=== PATIENT | male | born 1965 | race Caucasian/White ===

== ENCOUNTER 2022-01-13 16:08 | Emergency (ER) | payer MEDICAID ==
[~2022-01-13] VITALS: Ht 172.7 cm; Wt 70.3 kg
[~2022-01-13 16:08] MED LIST: ESOM20CA PO; METH10OR11 PO
[2022-01-13] MEDS ORDERED: LOPE2CAP PO (17:08)
[2022-01-13] MEDS ORDERED: CIPR-262 PO (17:08)
--- NOTE | 2022-01-13 17:13 | NUR ---
Patient discharged to home in stable condition. Written and verbal after care instructions given. Patient verbalizes understanding of instructions. Stressed follow up or return to ER for worsening s/s.
== END 2022-01-13 17:17 | disposition home or self-care (01) ==
LOC: ER 16:08
DX: R19.7 Diarrhea, unspecified (principal); K21.9 Gastro-esophageal reflux disease without esophagitis; E11.9 Type 2 diabetes mellitus without complications; D84.9 Immunodeficiency, unspecified
CPT/HCPCS: A4663

== ENCOUNTER 2023-10-21 15:04 | Emergency (ER) | payer MEDICAID ==
[~2023-10-21] VITALS: Ht 152.4 cm; Wt 71.7 kg
[~2023-10-21 15:04] MED LIST changes: +CIPR-262 PO; +LOPE2CAP PO
[2023-10-21] MEDS ORDERED: PRAV20TA4 PO (16:03)
[2023-10-21] MEDS ORDERED: INSU100V10 SQ (16:03)
[2023-10-21] MEDS: IV NORMAL SALINE 1000 ML BAG IV ONE (16:31)
[2023-10-21 16:38] LABS: BASOPHILS # (AUTO) 0.3 K/UL (0.0-0.2); BASOPHILS % (AUTO) 3.1 % (0.0-2.0); EOSINOPHILS # (AUTO) 0.1 K/uL (0.0-0.7); EOSINOPHILS % (AUTO) 0.6 % (0.0-7.0); HEMOGLOBIN 14.8 g/dL (12.5-16.3); LYMPHOCYTES # (AUTO) 1.5 K/uL (0.8-4.8); LYMPHOCYTES % (AUTO) 15.8 % (20.5-51.5); MEAN CORPUSCULAR HEMOGLOBIN 27.6 uug (23.8-33.4); MEAN CORPUSCULAR HGB CONC 33 g/dL (32.5-36.3); MEAN CORPUSCULAR VOLUME 83.8 fL (73.0-96.2); MONOCYTES # (AUTO) 0.5 K/uL (0.1-1.30); MONOCYTES % (AUTO) 5.1 % (0.0-11.0); NEUTROPHILS # (AUTO) 7.2 K/uL (1.8-8.9); NEUTROPHILS % (AUTO) 75.4 % (38.5-71.5); PLATELET COUNT (AUTO) 196 K/uL (152-348); RED BLOOD CELL COUNT(AUTO) 5.37 MIL/uL (4.06-5.63); WHITE BLOOD COUNT (AUTO) 9.6 K/uL (3.6-10.2)
[2023-10-21 16:42] LABS: DIFFERENTIAL COMMENT 1
[2023-10-21 16:56] LABS: ALANINE AMINOTRANSFERASE 22 U/L (16-63); ALBUMIN 3.9 g/dL (3.4-5.0); ALKALINE PHOSPHATASE 113 U/L (50-136); ASPARTATE AMINOTRANSFERASE 8 U/L (15-37); BILIRUBIN,DIRECT 0.1 mg/dL (0.0-0.2); BILIRUBIN,TOTAL 0.2 mg/dL (0.2-1.0); CALCIUM 9.8 mg/dL (8.5-10.1); CARBON DIOXIDE 29 mmol/L (21-32); CHLORIDE 100 mmol/L (98-107); CREATININE 0.9 mg/dL (0.6-1.3); GLUCOSE 243 mg/dL (74-106); POTASSIUM 4.3 mmol/L (3.5-5.1); SODIUM SERUM 138 mmol/L (136-145); TOTAL PROTEIN, SERUM 7.9 g/dL (6.4-8.2); UREA NITROGEN, BLOOD 14 mg/dL (7-18)
[2023-10-21 16:58] LABS: ETHANOL < 3 MG/DL (0-10)
[2023-10-21 17:01] LABS: THYROID STIMULATING HORMONE 2.813 mIU/mL (0.358-3.740)
[2023-10-21 17:43] LABS: ACETAMINOPHEN < 2.0 ug/mL (10-30); MAGNESIUM 1.9 mg/dL (1.8-2.4); PHOSPHOROUS 4.4 mg/dL (2.5-4.9)
[2023-10-21 18:31] LABS: *BILIRUBIN,URIN NEGATIVE (NEGATIVE); *CLARITY,URINE CLEAR (CLEAR); *COLOR,URINE YELLOW (YELLOW); *KETONES,URINE NEGATIVE (NEGATIVE); *PROTEIN,URINE NEGATIVE (NEGATIVE); *UROBILINOGEN,URINE 0.2 E.U./dl (NORMAL); LEUKOCYTE ESTERASE ,URINE NEGATIVE (NEGATIVE); NITRITE, URINE NEGATIVE (NEGATIVE)
[2023-10-21 18:40] LABS: *BLOOD, URINE NEGATIVE (NEGATIVE); UGLUCOSE 2+ (NEGATIVE)
[2023-10-21 18:41] LABS: RBC,URINE 0-3 /HPF (0-3); WBC,URINE 0-3 /HPF (0-3)
[2023-10-21 18:43] LABS: *AMPHETAMINE, URINE NEGATIVE (NEGATIVE); *BARBITURATE, URINE NEGATIVE (NEGATIVE); *BENZODIAZEPINE, URINE NEGATIVE (NEGATIVE); *CANNABINOID, URINE NEGATIVE (NEGATIVE); *COCCAINE, URINE NEGATIVE (NEGATIVE); *OPIATE, URINE NEGATIVE (NEGATIVE); *PHENCYCLIDINE SCREEN,URINE NEGATIVE (NEGATIVE)
[2023-10-21 18:45] LABS: FENTANYL, URINE NEGATIVE (NEGATIVE)
[2023-10-21 23:00] VITALS: O2SAT 93
== END 2023-10-22 00:10 | disposition short-term general hospital (02) ==
LOC: ER 15:04
DX: S06.5XAA Traumatic subdural hemorrhage with loss of consciousness status unknown, initial encounter (principal); R42 Dizziness and giddiness; E86.0 Dehydration; E78.5 Hyperlipidemia, unspecified; E11.65 Type 2 diabetes mellitus with hyperglycemia; R55 Syncope and collapse; K21.9 Gastro-esophageal reflux disease without esophagitis; Z79.4 Long term (current) use of insulin; Z79.899 Other long term (current) drug therapy; Z60.2 Problems related to living alone; X58.XXXA Exposure to other specified factors, initial encounter; Y93.89 Activity, other specified; Y92.89 Other specified places as the place of occurrence of the external cause; Y99.8 Other external cause status
CPT/HCPCS: 36415; 70450; 71045; 83735; 84100; 84443; 84484; 85025; 93005; A4606; A4663; G0480; J7040

== ENCOUNTER 2024-03-11 05:18 | Emergency (ER) | payer MEDICAID ==
[~2024-03-11] VITALS: Ht 172.7 cm; Wt 74.8 kg
[~2024-03-11 05:18] MED LIST changes: -CIPR-262 PO; -ESOM20CA PO; +INSU100V10 SQ; -LOPE2CAP PO; -METH10OR11 PO; +PRAV20TA4 PO
[2024-03-11 05:58] LABS: BASOPHILS # (AUTO) 0.1 K/UL (0.0-0.2); BASOPHILS % (AUTO) 0.8 % (0.0-2.0); EOSINOPHILS # (AUTO) 2.9 K/uL (0.0-0.7); EOSINOPHILS % (AUTO) 21.1 % (0.0-7.0); HEMATOCRIT 41.2 % (36.7-47.1); HEMOGLOBIN 14.3 g/dL (12.5-16.3); LYMPHOCYTES # (AUTO) 2.2 K/uL (0.8-4.8); LYMPHOCYTES % (AUTO) 15.5 % (20.5-51.5); MEAN CORPUSCULAR HEMOGLOBIN 29.2 uug (23.8-33.4); MEAN CORPUSCULAR HGB CONC 35 g/dL (32.5-36.3); MEAN CORPUSCULAR VOLUME 83.9 fL (73.0-96.2); MONOCYTES # (AUTO) 0.6 K/uL (0.1-1.30); MONOCYTES % (AUTO) 4.5 % (0.0-11.0); NEUTROPHILS # (AUTO) 8.1 K/uL (1.8-8.9); NEUTROPHILS % (AUTO) 58.1 % (38.5-71.5); PLATELET COUNT (AUTO) 201 K/uL (152-348); RED BLOOD CELL COUNT(AUTO) 4.92 MIL/uL (4.06-5.63); RED CELL DISTRIBUTION WIDTH 13.6 % (12.1-16.2)
[2024-03-11] MEDS ORDERED: ONDANSETRON 4 MG/2 ML VIAL ONE (06:02)
[2024-03-11] MEDS ORDERED: HYDROMORPHONE 1 MG/1 ML DISP.SYRIN ONE (06:02)
[2024-03-11] MEDS: ONDANSETRON 4 MG/2 ML VIAL IV ONE (06:11)
[2024-03-11] MEDS: HYDROMORPHONE 1 MG/1 ML DISP.SYRIN IV ONE ×3 (06:11→10:17)
[2024-03-11 06:15] LABS: *BILIRUBIN,URIN NEGATIVE (NEGATIVE); *BLOOD, URINE NEGATIVE (NEGATIVE); *CLARITY,URINE CLEAR (CLEAR); *COLOR,URINE YELLOW (YELLOW); *KETONES,URINE TRACE (NEGATIVE); *PROTEIN,URINE NEGATIVE (NEGATIVE); *UROBILINOGEN,URINE 0.2 E.U./dl (NORMAL); LEUKOCYTE ESTERASE ,URINE NEGATIVE (NEGATIVE); NITRITE, URINE NEGATIVE (NEGATIVE); PH,URINE 5.5 (5.0-8.0); UGLUCOSE NEGATIVE (NEGATIVE)
[2024-03-11 06:16] LABS: ALBUMIN 3.7 g/dL (3.4-5.0); BILIRUBIN,DIRECT 0.2 mg/dL (0.0-0.2); BILIRUBIN,TOTAL 0.4 mg/dL (0.2-1.0); CALCIUM 9.1 mg/dL (8.5-10.1); POTASSIUM 3.6 mmol/L (3.5-5.1); TOTAL PROTEIN, SERUM 7.3 g/dL (6.4-8.2)
[2024-03-11 06:28] LABS: BACTERIA,URINE FEW /HPF (NONE SEEN); COARSE GRANULAR CASTS,URINE 0-3 /LPF; MUCUS,URINE FEW /LPF (0-FEW); RBC,URINE 0-3 /HPF (0-3); SQUAMOUS EPITHELIAL CELL,UR FEW /HPF (NONE SEEN); WAXY CASTS,URINE NONE SEEN /LPF (NONE SEEN); WBC,URINE 0-3 /HPF (0-3)
[2024-03-11] MEDS ORDERED: EMPA10TA PO (06:48)
[2024-03-11] MEDS: IV NS 1000 ML 1,000 ML IV ONE (06:48)
[2024-03-11] MEDS ORDERED: SEMA0.25 SQ (06:48)
[2024-03-11] MEDS ORDERED: OMEP40CA21 PO (06:48)
[2024-03-11] MEDS ORDERED: LISI10TA29 PO (06:48)
[2024-03-11] MEDS ORDERED: FENO134C PO (06:48)
[2024-03-11] MEDS ORDERED: SIMV-46 PO (06:48)
[2024-03-11] MEDS ORDERED: INSU100V7 SQ (06:48)
[2024-03-11] MEDS ORDERED: IOHEXOL 300MG/ML 100 ML INFUS..BTL ONE (06:50)
[2024-03-11] MEDS ORDERED: SWABABLE VALVE TRANSFER SET EA MC ONE (06:51)
[2024-03-11] MEDS ORDERED: IV NORMAL SALINE 250 ML IV ONE (06:51)
[2024-03-11] MEDS ORDERED: HYDROMORPHONE 2 MG/1 ML DISP.SYRIN ONE ×2 (07:25→10:04)
[2024-03-11] MEDS ORDERED: PIPERACILLIN/TAZO 4.5 GM VIAL IV ONE (08:19)
[2024-03-11] MEDS: PIPERACILLIN SODIUM/TAZOBACTAM 4.5 G in IV DEXTROSE 5% 50 ML IV SCH (08:36)
[2024-03-11 14:38] VITALS: O2SAT 95
== END 2024-03-11 14:46 ==
LOC: ER 05:27
DX: R10.84 Generalized abdominal pain (principal); E11.9 Type 2 diabetes mellitus without complications; E78.5 Hyperlipidemia, unspecified; K21.9 Gastro-esophageal reflux disease without esophagitis; Z79.4 Long term (current) use of insulin; Z79.899 Other long term (current) drug therapy; Z60.2 Problems related to living alone; Z20.822 Contact with and (suspected) exposure to COVID-19
CPT/HCPCS: 99285; 74177; 96365; 96375; 96361; 87426; 80076; 80048; 81001; 82962; 83690; 85025; 84484; 36415; 93005; 96376; 83605; J2405; Q9967; J2543; J1171 ×3; J7040; A4606; A4663